=== PATIENT | male | born 1965 | race Caucasian/White ===

== ENCOUNTER 2017-02-19 15:36 | Inpatient (IN) | payer OTHER ==
[2017-02-19] VITALS (8 sets, daily range): BP systolic 131–165; BP diastolic 86–110
[~2017-02-19] VITALS: Ht 172.7 cm; Wt 107.7 kg
--- NOTE | ~2017-02-19 | EKG ---
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 : 1965 Requested By: Kel Gonsalves Order Number: [id number] MD: Karel Barajas Measurements Intervals [place] Rate: 89 P: 27 MI: 195 QRS: 20 QRSD: 104 T: 49 QT: 380 QTc: 463 Interpretive Statements Sinus rhythm RSR' in V1 or V2, right VCD Inferior infarct, age indeterminate Compared to ECG 11/03/2010 07:41:15 Inferior injury pattern is less pronounced Electronically Signed On 02-20-2017 8:25:26 CDT by Karel Barajas [email or web address] <ELECTRONICALLY SIGNED> By: Karel Barajas MD, [facility] 02/20/17 0825 1828 1828 Karel Barajas MD, [facility] /EPI
--- NOTE | ~2017-02-19 | EKG ---
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[facility] : 1965 Requested By: Aria Arreguin Order Number: [id number] MD: Karel Barajas Measurements Intervals [place] Rate: 74 P: 23 RI: 195 QRS: 51 QRSD: 105 T: 83 QT: 409 QTc: 454 Interpretive Statements Sinus rhythm Probable left atrial enlargement Borderline ST depression, lateral leads ST elevation, consider inferior injury Compared to ECG 11/03/2010 07:41:[address] elevation is no longer present Electronically Signed On 02-21-2017 7:48:27 CDT by Karel Barajas [email or web address] <ELECTRONICALLY SIGNED> By: Karel Barajas MD, [facility] 02/21/17 0748 1535 1535 Karel Barajas MD, [facility] /EPI
--- NOTE | ~2017-02-19 | CATHLAB ---
[facility] [place] [address] INVASIVE PROCEDURE REPORT Name: AMI POLO Room #: 206-P [facility] IN .#: [id number] Admission: 02/19/17 Attend Phys: Kel Gonsalves, Discharge: 02/21/17 Date of : 69 Date of Service: 02/19/17 1753 Report #: [id number] THIS REPORT FOR: //name// CC: Kel Briceño MD DATE OF SERVICE: 02/19/2017 PROCEDURES: Left ventriculography, coronary arteriography, saphenous vein graft, left internal mammary artery visualization, percutaneous transluminal coronary angioplasty stent of distal right coronary artery, abdominal aortography. INDICATION: Acute inferior wall myocardial infarction. DESCRIPTION OF PROCEDURE: The patient brought to the label operator emergently from the ER. He had received Lipitor 80, aspirin and heparin bolus. Right groin prepped and draped in sterile manner. Xylocaine 1% was used for local anesthesia. IV Versed was given for conscious sedation. A 6-Andorran sheath in right femoral artery and initially straight pigtail catheter performed a single GUADALUPE arteriogram. EF was preserved and AP aortogram. FL4 for left coronary system, FR4 for the right coronary system, also FR4 for HILL to LAD, which was intact, widely patent. The diagonal OM [place] we were occluded. The LAD was occluded. The JR4 for the right reveals moderate disease in this dominant right and is filling subtotal lesion in this PDA system, which retrograde fills the vein graft. I also was utilized a JR4 for the SVG to the PDA and this is an atretic graft providing minimal filling to no filling in this PDA. I elected to intervene into the [place] system, subtle inferior wall EKG changes and chest pain persisted. Additional heparin and Integrilin bolus was given, Integrilin drip. JR4 guide, 0.014 Luge wire and a 2.25 x 12 Sprinter balloon was utilized. Had some difficulty crossing the subtotal distal RCA lesions at the bifurcation into the PDA. Eventually, was able to cross dilate with a 2.25 multiple overlapping inflations. Had significant residual. I then exchanged for 2.5 x 26 Resolute drug-eluting stent. With some difficulty, I was able to cross these tandem lesions. I placed it right at the bifurcation of the PDA and JEANNIE system. The wire was down the large PDA, which was a bifurcating system of itself. I then deployed this at 10 atmospheres, pulled back within the stent and dilated this up to 14 atmospheres approaching 2.75 mm in size yielding 0% residual and EARLE grade 3. Marked improvement in the flow and the enlargement of the PDA system was noted. Resolution of the EKG and chest pain. Had some reperfusion bradydysrhythmias, which quickly resolved. No hematoma. Additional heparin was given and an Effient p.o. load was given for dual antiplatelet therapy. The vascular sheath is secured and stable. He is pain free and stable, transferred to the CCU to follow stent protocol. Integrilin drip will be maintained. [facility] [address] [place] [address] INVASIVE PROCEDURE REPORT Name: AMI POLO Room #: 206-P DIS IN M.R.#: [id number] Admission: 02/19/17 Attend Phys: Kel Gonsalves, Discharge: 02/21/17 Date of : 69 Date of Service: 02/19/17 175 Report #: [id number] HEMODYNAMICS: LV was 164/13. AO was 170/102. IMPRESSION: 1. Successful percutaneous transluminal coronary angioplasty stent of the [place] dominant right subtotal lesions, acute infarct tandem essentially occluded. EARLE grade 3 flow with the 2.5 x 26 Resolute drug-eluting stent. There were moderate lesions in the proximal and mid right coronary artery 50%, we will follow. 2. An atretic vein graft to the posterior descending artery providing no significant filling. 3. The left main is moderately diseased giving rise to the circumflex and otherwise occluded left anterior descending and obtuse marginal system. 4. Left internal mammary artery to left anterior descending is widely patent, extends around the apex with minimal disease in the left anterior descending after the anastomosis. 5. Sequential saphenous vein graft to D1, OM1, OM2 is all widely patent and these vessels were well preserved. 6. Normal left ventricular size with subtle inferior wall lag, ejection fraction 50% range. 7. Abdominal aorta is intact with mild ectasia, but no aneurysm. Renal arteries were widely patent. RECOMMENDATIONS: Continue aggressive risk factor modification, dual antiplatelet therapy to continue indefinitely. Transfer to CCU in stable condition with results, EKG changes and chest pain. We will initiate a statin, beta armin, BASILIO inhibitor. <ELECTRONICALLY SIGNED> By: Kle Gonsalves MD, FACC 02/21/17 1231 1753 193 Kel Gonsalves MD, FACC /nt
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
--- NOTE | ~2017-02-19 | CATHLAB ---
[facility] [address] [place] [address] INVASIVE PROCEDURE REPORT Name: AMI POLO Room #: 206-P [facility] IN ..#: [id number] Admission: 02/19/17 Attend Phys: Kel Gonsalves, Discharge: Date of : 69 Date of Service: 02/19/17 1841 Report #: [id number] THIS REPORT FOR: //name// ADDENDUM APPROVED REPORT Patient Details Patient Status: In-Patient Room #: The patient is a 51 year-old male Event Personnel Kel Gonsalves Sheep Or Calf Grader, Erin Mitchell Monitor, Dominga Lambert RN RN, Fermín Jefferson RN, Liz Allen RTR Scrub, Jennifer Dorsey RTR Monitor Procedures Performed Art Access - R femoral artery* Left Heart Cath Coronaries, Bypass Grafts [id number] CCORCA NEO Place w/wo Plasty Single RCA [id number] Hemostasis with Manual pressure Procedure Narrative The Right Groin^ was infiltrated with 1% Lidocaine subcutaneous anesthesia. A PINNACLE 6FR Sheath #[id number] sheath was inserted into the RFA^. Coronary angiography was performed using coronary diagnostic catheters. The right coronary system was accessed and visualized with a JR 4 catheter. The left coronary system was accessed and visualized with a JL 4 catheter. The left ventricle was accessed and visualized with a Pigtail catheter. Left ventricular/Aortic Valve gradient assessed via catheter pullback. Left ventriculogram was performed in GUADALUPE projection. An aortogram of the abdominal aorta was performed. The patient tolerated the procedure well and there were no complications associated with the procedure. There was no hematoma. Intraoperative Conscious Sedation Sedation start time: 16:4817:37 Case end Time: Fentanyl 50.0 mcg Versed 1.0 mg Fluoro Time: 14.40 minutes Dose: DAP 49646.40 cGycm2 2757 mGy Contrast Type and Amount: Omnipaque 310 ml Hemodynamics The aortic pressure is 173/102 mmHg with a mean of 126 mmHg. The left ventricular pressure is 165/13 mmHg with a mean of mmHg. [facility] [address] [place] [address] INVASIVE PROCEDURE REPORT Name: AMI POLO Room #: 206-P [facility] IN M.R.#: [id number] Admission: 02/19/17 Attend Phys: Kel Gonsalves, Discharge: Date of : 69 Date of Service: 02/19/17 1841 Report #: [id number] ventricular end diastolic pressure is 33 mmHg. PCI Technique Lesion Anticoagulation was achieved with Heparin. Percutaneous coronary intervention was performed on the mistal right coronary artery. A LAUNCHER 6FR JR 4 #[id number] Guide Catheter was used to engage the ostium. A Luge Wire .014 x 182CM #[id number] Interventional Guidewire was used to cross the lesion. BALLOON DILATION A Balloon catheter Sprinter OTW 2.25 x 12 #[id number] was inserted and inflated up to 6.00atm for 14seconds. Additional Inflation: 6.00atm for 24seconds. Additional Inflation: 10.00atm for 34seconds. STENT DEPLOYMENT A drug-eluting stent RESOLUTE OTW 2.5 X 26 #[id number] was inserted and inflated up to 16.00atm for 18seconds. Conclusion #1 successful PTCA stent [place] distal RCA tandem subtotal lesions to EARLE grade 3 flow with placement of a 26 resolute drug-eluting stent postdilated 2.75 mm in size marked improvement in the distal vasculature PDA JEANNIE system #2 normal left ventricular size with subtle inferior wall hypokinesis #3 abdominal aorta intact with mild irregularity no aneurysm renal arteries are patent #4 [place] left system essentially occluded except for a small circumflex in the AV groove OM branches LAD and diagonal are occluded natively proximally #5 limited to LAD is intact minimal irregularity LAD extends around the apex mildly diseased #6 SVG to D1 OM1 OM 2 intact mild irregularities well-preserved vessel #7 atretic vein graft to PDA provide minimal distal filling Recommendations and plan we'll continue Integrilin drip has loaded with Effient by mouth continue dual antiplatelet therapy indefinitely to CCU in stable but guarded condition [facility] [address] [place] [address] INVASIVE PROCEDURE REPORT Name: AMI POLO Room #: 206-P [facility] IN M.R.#: [id number] Admission: 02/19/17 Attend Phys: Kel Gonsalves, Discharge: Date of : 69 Date of Service: 02/19/17 1841 Report #: [id number] Addendum there is moderate proximal and mid RCA lesions above the subtotal vessel that was stented 40-50% will follow <ELECTRONICALLY SIGNED> By: Kel Gonsalves MD, FACC 02/19/171840 40 40 Kel Gonsalves MD, FACC /INF
--- NOTE | ~2017-02-19 | 2DMMODE ---
[facility] [address] [place] [address] 2 D/M-MODE ECHOCARDIOGRAM Name: AMI POLO Room #: 206-P [facility] IN M.R.#: [id number] Admission: 02/19/17 Attend Phys: Kel Gonsalves, Discharge: Date of : 69 Date of Service: 02/20/17 1015 Report #: [id number] THIS REPORT FOR: //name// APPROVED REPORT Study performed: 02/20/2017 08:55:21 EXAM: Comprehensive 2D, Doppler, and color-flow Echocardiogram Patient Location: Bedside Room #: 206 Status: routine BSA: 2.20 HR: 88 bpm Other Information Study Quality: Good Indications CAD Hypertension/HDD CABG, HLP STEMI. 2D Dimensions RVDd: 37.02 mm LVEF(%): 49.57 (>50%) IVSd: 14.40 (7-11mm) LVOT Diam: 23.71 (18-24mm) LVDd: 42.59 mm PWd: 14.05 (7-11mm) Ascending Ao: 35.09 (22-36mm) LVDs: 32.00 (25-40mm) Aortic Root: 36.92 mm IVC: 19.00 mm Lee's LVEF: 49.57 % Volumes Left Atrial Volume (Systole) Single Plane 4CH: 60.84 mL Single Plane 2CH: 55.08 mL LA ESV Index: 29.00 mL/m2 Aortic Valve AoV Peak Eduardo.: 1.21 m/s AO Peak Gr.: 5.90 mmHg LVOT Max P.07 mmHg LVOT Max V: 1.01 m/s DEB Vmax: 3.67 cm2 Mitral Valve E/A Ratio: 1.2 [facility] [address] [address] 2 D/M-MODE ECHOCARDIOGRAM Name: AMI POLO Room #: 206-[facility] IN ..#: [id number] Admission: 02/19/17 Attend Phys: Kel Gonsalves, Discharge: Date of : 69 Date of Service: 02/20/17 1015 Report #: [id number] MV Decel. Time: 204.54 ms MV E Max Eduardo.: 0.97 m/s MV A Eduardo.: 0.79 m/s MV PHT: 59.32 ms IVRT: 69.20 ms Pulmonary Valve PV Peak Eduardo.: 1.46 m/s PV Peak Gr.: 8.50 mmHg MS End Vmax: 1.21 m/s Pulmonary Vein P Vein S: 0.69 m/s P Vein A: 0.37 m/s P Vein D: 0.65 m/s P Vein A Dur.: 120.0 msec P Vein S/D Ratio: 1.06 Tricuspid Valve RAP Estimate: 5.00 mmHg Left Ventricle The left ventricle is normal size. There is hypokinesis in the basal inferior wall. Mild concentric left ventricular hypertrophy. Left ventricular systolic function is at the lower limits of normal. LVEF is 50-55%. Grade II - pseudonormal filling dynamics. Right Ventricle The right ventricle is normal size. The right ventricular systolic function is normal. Atria The left atrium size is normal. The right atrium size is normal. Aortic Valve The aortic valve is mildly sclerotic. No aortic regurgitation is present. There is no aortic valvular stenosis. Mitral Valve The mitral valve is normal in structure. Mild mitral regurgitation. No evidence of mitral valve stenosis. Tricuspid Valve The tricuspid valve is normal in structure. There is trace tricuspid regurgitation. The right atrial pressure is estimated at 5 mmHg. There is no pulmonary hypertension. Pulmonic Valve [place] [address] [place] [address] 2 D/M-MODE ECHOCARDIOGRAM Name: AMI POLO Callie Room #: 206-P [facility] IN [facility]#: [id number] Admission: 02/19/17 Attend Phys: Kel Gonsalves, Discharge: Date of : 69 Date of Service: 02/20/17 1015 Report #: [id number] The pulmonary valve is normal in structure. Trace pulmonic regurgitation. Great Vessels The aortic root is normal in size. IVC is normal in size and collapses >50% with inspiration. Pericardium There is no pericardial effusion. <Conclusion> Left ventricular systolic function is at the lower limits of normal. There is hypokinesis in the basal inferior wall. LVEF 50-55%. The aortic valve is mildly sclerotic. No aortic regurgitation or stenosis The mitral valve is normal in structure. Mild mitral regurgitation. Pulmonary artery pressure could not be reliably ascertained There is no pericardial effusion. <ELECTRONICALLY SIGNED> By: Karel Barajas MD, [facility] 02/20/17 1015 1015 1015 Karel Barajas MD, FACC /INF
--- NOTE | ~2017-02-19 | EKG ---
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 : 1965 Requested By: Agustina Ross Order Number: [id number] MD: Karel Barajas Measurements Intervals [place] Rate: 89 P: 19 MT: 171 QRS: 54 QRSD: 106 T: -13 QT: 387 QTc: 471 Interpretive Statements Sinus rhythm Probable left atrial enlargement Borderline repolarization abnormality Compared to ECG 02/19/2017 18:28:24 Inferior Q waves are no longer present ST segment abnormality is more pronounced Electronically Signed On 02-20-2017 8:49:57 CDT by Karle Barajas [email or web address] <ELECTRONICALLY SIGNED> By: Karel Barajas MD, [facility] 02/20/17 0849 2 2 Karel Barajas MD, [facility] /EPI
[~2017-02-19 15:36] MED LIST: DEXILANT60 MG; HYDROCODON-ACE1 EAC7 PO; LIPITOR80 MG PO; LISINOPRIL2.5 MG PO; LISINOPRIL40 MG; MINIPRIN81 MG PO; OXYCODON-ACETA1 EAC1 PO; PHISOHEX148 ML; TOPROL XL50 MG PO; UNICOMPLEX M TA1 TA1 PO
[2017-02-19] MEDS ORDERED: FISH OIL 1,001000 M2 PO (16:00)
[2017-02-19 16:02] LABS: POC CA IONIZED 4.8 mg/dL (4.5-5.3); POC HEMOGLOBIN 16.3 g/dL (14.0-18.0)
[2017-02-19 16:08] LABS: ABSOLUTE NEUTROPHILS 9.8 thou/uL (1.4-8.2); BASOPHILS 0.5 % (0.0-2.0); EOSINOPHILS 1.8 % (0.0-3.0); HEMATOCRIT 47.8 % (42.0-52.0); HEMOGLOBIN 16.5 gm/dL (14.0-18.0); LYMPHOCYTES 27.2 % (24.0-44.0); MCH 31.1 pg (26.0-34.0); MCHC 34.4 g/dL (28.0-37.0); MCV 90.4 fL (80.0-100.0); MONOCYTES 6.1 % (1.0-8.0); PLATELET COUNT 276 thou/uL (150-400); POLYS 64.4 % (36.0-66.0); RBC 5.28 mil/uL (4.50-6.00); RDW 13.1 % (10.5-14.5); WBC 15.3 thou/uL (4.0-11.0)
[2017-02-19 16:09] LABS: MANUAL DIFF NO
[2017-02-19 16:16] LABS: CALCIUM 9.3 mg/dL (8.5-10.1); CREATININE 1.1 mg/dL (0.7-1.3)
[2017-02-19 16:24] LABS: APTT 27.1 Seconds (24.5-32.8); PROTIME 10.1 Seconds (9.3-11.4)
[2017-02-19 16:29] LABS: DIRECT BILIRUBIN 0.1 mg/dL (<0.1-0.3); TOTAL BILIRUBIN 0.5 mg/dL (<0.1-1.0); TOTAL PROTEIN 7.8 g/dL (6.4-8.2)
[2017-02-19 16:31] LABS: TROPONIN-I 0.7 ng/mL (<0.04-0.07)
[2017-02-20 03:21] LABS: HEMATOCRIT 45.1 % (42.0-52.0); HEMOGLOBIN 14.9 gm/dL (14.0-18.0); MCH 30.1 pg (26.0-34.0); MCHC 33.2 g/dL (28.0-37.0); MCV 90.8 fL (80.0-100.0); RBC 4.96 mil/uL (4.50-6.00); WBC 13.1 thou/uL (4.0-11.0)
[2017-02-20 03:39] LABS: ANION GAP 12 mmol/L (7-16); BUN 16 mg/dL (7-18); CALCIUM 8.6 mg/dL (8.5-10.1); CHLORIDE 105 mmol/L (98-107); CHOLESTEROL 130 mg/dL (<200); CO2 23 mmol/L (21-32); CREATININE 0.7 mg/dL (0.7-1.3); GLUCOSE 146 mg/dL (74-106); HDL CHOLESTEROL 24 mg/dL (>40); LDL CHOLESTEROL 65 mg/dL (<100); POTASSIUM 3.7 mmol/L (3.5-5.1); SODIUM 140 mmol/L (136-145); TC:HDL 5.4 Ratio (Not establshd); TRIGLYCERIDE 207 mg/dL (<150); VLDL 41 mg/dL (<40)
[2017-02-20 05:44] VITALS: BP 139/93
[2017-02-20 07:40] VITALS: BP 146/93
[2017-02-20 11:07] VITALS: BP 146/104
[2017-02-20 15:33] VITALS: BP 147/107
[2017-02-20 20:25] VITALS: BP 142/101
[2017-02-20 21:00] VITALS: BP 142/101
[2017-02-21 04:15] VITALS: BP 141/104
[2017-02-21 07:01] VITALS: BP 144/94
[2017-02-21] MEDS ORDERED: PLAVIX 75 MG TA75 M1 PO (08:16)
[2017-02-21] MEDS ORDERED: ASPIRIN EC325 M1 PO (08:16)
[2017-02-21] MEDS ORDERED: COZAAR100 MG PO (08:16)
[2017-02-21] MEDS ORDERED: ATORVASTATIN CA40 MG PO (08:16)
[2017-02-21] MEDS ORDERED: METOPROLOL SUCC25 M1 PO (08:16)
[2017-02-21] MEDS ORDERED: EFFIENT10 MG PO (08:16)
[2017-02-21 09:38] VITALS: BP 144/94
== END 2017-02-21 10:15 | disposition home or self-care (01) | DRG 247 ==
LOC: ER 15:36 → 2N 18:35
PROVIDERS: Emergency Medicine; Internal Medicine Cardiovascular Disease
PROC: 027034Z Dilation of Coronary Artery, One Artery with Drug-eluting Intraluminal Device, Percutaneous Approach (ICD-10-PCS; principal; 2017-02-19)
PROC: 4A023N7 Measurement of Cardiac Sampling and Pressure, Left Heart, Percutaneous Approach (ICD-10-PCS; principal; 2017-02-19)
PROC: B2151ZZ Fluoroscopy of Left Heart using Low Osmolar Contrast (ICD-10-PCS; principal; 2017-02-19)
PROC: B2111ZZ Fluoroscopy of Multiple Coronary Arteries using Low Osmolar Contrast (ICD-10-PCS; principal; 2017-02-19)
PROC: B3101ZZ Fluoroscopy of Thoracic Aorta using Low Osmolar Contrast (ICD-10-PCS; principal; 2017-02-19)
DX: I21.19 ST elevation (STEMI) myocardial infarction involving other coronary artery of inferior wall (principal); I25.10 Atherosclerotic heart disease of native coronary artery without angina pectoris; G47.30 Sleep apnea, unspecified; I10 Essential (primary) hypertension; E78.00 Pure hypercholesterolemia, unspecified; F17.210 Nicotine dependence, cigarettes, uncomplicated; Z91.19 Patient's noncompliance with other medical treatment and regimen; Z79.899 Other long term (current) drug therapy; Z95.1 Presence of aortocoronary bypass graft; Z87.81 Personal history of (healed) traumatic fracture; Z90.49 Acquired absence of other specified parts of digestive tract
CPT/HCPCS: 10081

== ENCOUNTER → 2021-06-20 | Outpatient (CLI) | payer BC ==
[~2021-06-20] MED LIST changes: +ASPIRIN EC325 M1 PO; +ATORVASTATIN CA40 MG PO; +COZAAR100 MG PO; +EFFIENT10 MG PO; +FISH OIL 1,001000 M2 PO; +METOPROLOL SUCC25 M1 PO; +PLAVIX 75 MG TA75 M1 PO
== END ==
LOC: SJCVCIMAG 08:14
PROVIDERS: ATTEND Internal Medicine Cardiovascular Disease
DX: I25.10 Atherosclerotic heart disease of native coronary artery without angina pectoris (principal); E78.5 Hyperlipidemia, unspecified; I10 Essential (primary) hypertension; Z95.1 Presence of aortocoronary bypass graft